=== PATIENT | male | born 1975 | race African-American/Black ===

== ENCOUNTER 2023-05-25 18:00 | Emergency (ER) | payer OTHER ==
[~2023-05-25] VITALS: Ht 190.5 cm; Wt 100.0 kg
[2023-05-25] MEDS ORDERED: VITAMIN D350 MC1 (19:05)
[2023-05-25] MEDS ORDERED: FLOMAX0.4 MG PO (19:05)
[2023-05-25] MEDS ORDERED: LOSARTAN POTASS50 MG PO (19:05)
[2023-05-25] MEDS ORDERED: AMLODIPINE BESY10 MG PO (19:05)
[2023-05-25] MEDS ORDERED: TRAZODONE HCL100 MG PO (19:05)
[2023-05-25] MEDS ORDERED: FLONASE ALLERG9.9 ML INH ×2 (19:05→19:41)
[2023-05-25] MEDS ORDERED: OLOPATADINE HC2.5 ML (19:05)
[2023-05-25] MEDS ORDERED: OMEPRAZOLE20 M2 (19:05)
[2023-05-25] MEDS ORDERED: FOLBIC TABLET1 EACH (19:05)
[2023-05-25] MEDS ORDERED: TRUVADA 200 MG1 EACH (19:05)
[2023-05-25] MEDS ORDERED: SYMBICORT 16010.2 GM INH (19:05)
[2023-05-25] MEDS ORDERED: ADDERALL 20 MG20 MG (19:05)
[2023-05-25] MEDS ORDERED: IBUPROFEN600 MG PO (19:39)
[2023-05-25] MEDS ORDERED: MUCINEX DM ER1 EAC1 PO (19:39)
[2023-05-25] MEDS ORDERED: CLARITIN10 MG PO (19:39)
[2023-05-25] MEDS ORDERED: BENZONATATE100 MG PO (19:39)
[2023-05-25 19:45] VITALS: BP 146/82; PULSE 67; RESP 18; TEMP 98.5; O2SAT 97
== END 2023-05-25 19:45 | disposition home or self-care (01) ==
LOC: FSED 18:07
DX: R05.9 Cough, unspecified (principal); J06.9 Acute upper respiratory infection, unspecified; I10 Essential (primary) hypertension; B20 Human immunodeficiency virus [HIV] disease; K21.9 Gastro-esophageal reflux disease without esophagitis; F90.9 Attention-deficit hyperactivity disorder, unspecified type; Z20.822 Contact with and (suspected) exposure to COVID-19
CPT/HCPCS: 0223U; 83518; 87400; 99282